=== PATIENT | male | born 1985 | race Caucasian/White ===

== ENCOUNTER 2020-05-10 15:22 | Emergency (ER) | payer SELFPAY ==
[~2020-05-10] VITALS: Ht 172.7 cm; Wt 72.0 kg
[2020-05-10] MEDS ORDERED: MAGNESIUM/ALUMINUM HYDROXIDE/SIMETHICONE 30ML UDC PO STA (16:02)
[2020-05-10] MEDS ORDERED: VISCOUS LIDOCAINE 2% 15 ML UDC PO STA (16:02)
[2020-05-10 16:22] LABS: CLARITY URINE CLEAR (CLEAR); COLOR URINE YELLOW (YELLOW); KETONES URINE TRACE (NEGATIVE); LEUKOCYTE ESTERASE URINE NEGATIVE (NEGATIVE); NITRITE URINE NEGATIVE (NEGATIVE); OCCULT BLOOD URINE NEGATIVE (NEGATIVE); PROTEIN URINE NEGATIVE (NEGATIVE); SPECIFIC GRAVITY URINE 1.025 (1.005-1.030)
[2020-05-10 16:44] LABS: BASOPHILS % 2.6 % (0.0-2.0); EOSINOPHILS % 1.3 % (0.0-5.0); HEMATOCRIT. 42.1 % (42.0-52.0); HEMOGLOBIN. 14.2 g/dL (14.0-18.0); LYMPHOCYTES % 28.6 % (20.0-50.0); MEAN CORPUSCULAR HEMOGLOBIN 31.9 pg (28.0-32.0); MEAN CORPUSCULAR VOLUME 94.9 fL (80.0-94.0); MEAN PLATELET VOLUME 8.9 fl (7.4-10.4); MONOCYTES % 11.2 % (2.0-8.0); NEUTROPHILS % 56.3 % (40.0-76.0); PLATELET 299 x1000/uL (130-400); RED BLOOD CELL COUNT 4.44 mill/uL (4.7-6.1); RED CELL DISTRIBUTION WIDTH 14.4 % (11.6-14.6)
[2020-05-10] MEDS ORDERED: HALOPERIDOL LACTATE 5MG/ML VIAL IM ONE (16:45)
[2020-05-10] MEDS ORDERED: MORPHINE SULFATE 4 MG/ML CPJ (NOT FOR IM USE) IV ONE (16:45)
[2020-05-10 16:51] LABS: CHLORIDE 105 mEq/L (98-107)
[2020-05-10 16:56] LABS: PROTHROMBIN TIME 10.5 sec (9.6-11.0)
[2020-05-10] MEDS ORDERED: OMEP20TA2 MT (18:45)
[2020-05-10] MEDS ORDERED: FAMO40TA70 MT (18:45)
[2020-05-10 19:15] VITALS: BP 129/79
== END 2020-05-10 19:16 | disposition home or self-care (01) ==
LOC: ER 15:22
DX: R10.12 Left upper quadrant pain (principal); R10.11 Right upper quadrant pain; R11.0 Nausea
CPT/HCPCS: 36415; 80053; 81003; 83690; 85025; 85610; 96372; 96374; 99284; J1630; J2270

== ENCOUNTER 2020-05-10 22:00 | Emergency (ER) | payer OTHER ==
[~2020-05-10] VITALS: Ht 177.8 cm; Wt 75.0 kg
[~2020-05-10 22:00] MED LIST: FAMO40TA70 MT; OMEP20TA2 MT
[2020-05-10 22:03] VITALS: BP 116/79
== END 2020-05-10 22:29 | disposition home or self-care (01) ==
LOC: ER 22:00
DX: R10.9 Unspecified abdominal pain (principal); Z98.890 Other specified postprocedural states
CPT/HCPCS: 93005; 99283